=== PATIENT | female | born 1940 | race Caucasian/White ===

== ENCOUNTER 2023-11-24 21:25 | Inpatient (IN) | payer MEDICARE, SELFPAY ==
[~2023-11-24 21:25] MED LIST: Iopamidol-370 76% 500 ML MDV (1 ML CHARGE) ONE
[2023-11-24 22:27] LABS: #Basophils 0.05 10x3/uL (0.0-0.2); %Basophils 0.4 % (0.0-1.0); %Eosinophils 2.2 % (0.0-10.0); %Monocytes 6.5 % (0.0-10.0); %Neutrophils 76.6 % (42.0-75.0); Hematocrit 29.4 % (36.0-47.0); Hemoglobin 9.1 g/dL (12.0-16.0); Mean Corpuscular Hemoglobin 22.8 pg (27.0-31.0); Mean Corpuscular Volume 73.5 fL (78.0-98.0); Mean Platelet Volume 8.6 fL (7.4-10.4); Platelet Count 309 10x3/uL (130-400); RBC Distribution Width 16.5 % (11.5-14.5)
[2023-11-24 22:44] LABS: ALT (SGPT) 11 U/L (8-55); AST (SGOT) 15 U/L (5-34); Albumin 2.6 g/dL (3.4-4.8); Alkaline Phosphatase 61 U/L (40-110); Anion Gap 14 mmol/L (10-20); BUN (Urea Nitrogen) 18 mg/dL (9.8-20.1); Bilirubin, Total 0.4 mg/dL (0.2-1.2); Calc. Creatinine Clearance 0 mL/min (70-130); Carbon Dioxide 27 mmol/L (23-31); Chloride 94 mmol/L (98-107); Estimated GFR 75; Globulin 3.5 g/dL (2.4-3.5); Glucose 137 mg/dL (83-110); Potassium 3.8 mmol/L (3.5-5.1); Protein, Total 6.1 g/dL (5.8-8.1); Sodium 131 mmol/L (136-145)
[2023-11-24 22:47] LABS: Anisocytosis SLIGHT = 6-15 cells HPF (0-5); Hypochromia SLIGHT = 6-15 cells HPF (0-5); Microcytosis SLIGHT = 6-15 cells HPF (0-5); Platelet Adequacy Comment Platelets Normal; Polychromasia SLIGHT = 2-3 cells HPF (0-2); Target Cells SLIGHT = 2-5 cells HPF (0-1)
[2023-11-24 23:19] LABS: Troponin I 0.182 ng/mL (< 0.028)
[2023-11-25] MEDS ORDERED: Aspirin Chewable 81 MG TAB ONE (01:11)
[2023-11-25] MEDS ORDERED: Furosemide 40 MG (4 mL) VIAL ONE (01:11)
[2023-11-25] MEDS ORDERED: Sodium Chloride 0.9% 100 ML ONE (01:12)
[2023-11-25] MEDS ORDERED: Cefepime 2 GM VIAL ONE (01:12)
[2023-11-25] MEDS ORDERED: Ipratropium/Albuterol 3 ML NEB NEB PRN (01:20)
[2023-11-25] MEDS ORDERED: Ondansetron ODT 4 MG TAB PO PRN (01:21)
[2023-11-25] MEDS ORDERED: Acetaminophen 650 MG Suppository PR PRN (01:21)
[2023-11-25] MEDS ORDERED: Ondansetron PF 4 MG/2 ML Vial IVP PRN (01:21)
[2023-11-25] MEDS ORDERED: LevoFLOXacin 750 mg/D5W 150 ml Premix Bag ONE (01:44)
[2023-11-25 03:21] VITALS: BMI 23.6
[2023-11-25 05:33] LABS: #Basophils 0.05 10x3/uL (0.0-0.2); %Basophils 0.4 % (0.0-1.0); %Eosinophils 4.9 % (0.0-10.0); %Lymphocytes 18.8 % (21.0-51.0); %Neutrophils 64.4 % (42.0-75.0); Hematocrit 29.4 % (36.0-47.0); Hemoglobin 8.9 g/dL (12.0-16.0); Mean Corpuscular HGB CONC 30.3 g/dL (32.0-36.0); Mean Corpuscular Hemoglobin 22.5 pg (27.0-31.0); Mean Corpuscular Volume 74.4 fL (78.0-98.0); Mean Platelet Volume 8.6 fL (7.4-10.4); Platelet Count 282 10x3/uL (130-400); RBC Distribution Width 16.9 % (11.5-14.5); Red Blood Cell (RBC) Count 3.95 mill/uL (4.20-5.40)
[2023-11-25 05:44] LABS: Anion Gap 13 mmol/L (10-20); BUN (Urea Nitrogen) 16 mg/dL (9.8-20.1); Calc. Creatinine Clearance 53 mL/min (70-130); Carbon Dioxide 29 mmol/L (23-31); Chloride 94 mmol/L (98-107); Estimated GFR 86; Glucose 85 mg/dL (83-110); Potassium 3.6 mmol/L (3.5-5.1); Sodium 132 mmol/L (136-145)
[2023-11-25 05:55] LABS: Troponin I 0.219 ng/mL (< 0.028)
[2023-11-25 06:25] LABS: Influenza A by NAA Not Detected (NotDetected); Influenza B by NAA Not Detected (NotDetected); RSV by NAA Not Detected (NotDetected); SARS-CoV-2 NAA Rapid Test Not Detected (NotDetected)
[2023-11-25] MEDS: Ipratropium Bromide 2.5 ml Neb NEB SCH (07:20)
[2023-11-25] MEDS: Mometasone 200 MCG/Formoterol 5 MCG 120 PUFF INHALER INH SCH (07:22)
[2023-11-25 07:27] LABS: Legionella Urinary Ag Negative (Negative); Strep pneumo Urine Ag NEGATIVE (NEGATIVE)
[2023-11-25] MEDS: cefTRIAXone\\ROCEPHIN 1 GM in Sodium Chloride 0.9% 100 ML IVPB SCH (08:19)
[2023-11-25] MEDS: Famotidine/PF 20 mg/2ml Vial SLOW IVP SCH (08:19)
[2023-11-25] MEDS: Famotidine 20 MG TAB PO SCH (08:20)
[2023-11-25 09:55] LABS: Troponin I 0.138 ng/mL (< 0.028)
[2023-11-25] MEDS: Acetaminophen/Codeine 30-300mg Tablet PO PRN (17:46)
[2023-11-25] MEDS: Acetaminophen 325 MG TAB PO PRN (20:26)
[2023-11-26 10:12] LABS: Anion Gap 12 mmol/L (10-20); BUN (Urea Nitrogen) 9 mg/dL (9.8-20.1); Calc. Creatinine Clearance 64 mL/min (70-130); Calcium 9.4 mg/dL (7.8-10.44); Carbon Dioxide 29 mmol/L (23-31); Chloride 98 mmol/L (98-107); Estimated GFR 90; Glucose 124 mg/dL (83-110); Potassium 4.1 mmol/L (3.5-5.1); Sodium 135 mmol/L (136-145)
[2023-11-26 16:36] VITALS: BMI 23.2
[2023-11-26] MEDS: LevoFLOXacin 750 mg/D5W 750 MG in Premix 1 BAG IVPB SCH (20:55)
[2023-11-26] MEDS ORDERED: LevoFLOXacin 750 mg/D5W 750 MG in Premix 1 BAG IVPB SCH (21:00)
[2023-11-27 10:26] LABS: #Basophils 0.04 10x3/uL (0.0-0.2); %Basophils 0.4 % (0.0-1.0); %Lymphocytes 17.3 % (21.0-51.0); %Monocytes 7.6 % (0.0-10.0); %Neutrophils 68.3 % (42.0-75.0); Hematocrit 28.6 % (36.0-47.0); Hemoglobin 8.6 g/dL (12.0-16.0); Mean Corpuscular HGB CONC 30.1 g/dL (32.0-36.0); Mean Corpuscular Hemoglobin 22.5 pg (27.0-31.0); Mean Corpuscular Volume 74.7 fL (78.0-98.0); Mean Platelet Volume 8.3 fL (7.4-10.4); Platelet Count 270 10x3/uL (130-400); Red Blood Cell (RBC) Count 3.83 mill/uL (4.20-5.40)
[2023-11-27 10:43] LABS: Anion Gap 13 mmol/L (10-20); BUN (Urea Nitrogen) 10 mg/dL (9.8-20.1); Calc. Creatinine Clearance 73 mL/min (70-130); Calcium 9.1 mg/dL (7.8-10.44); Carbon Dioxide 26 mmol/L (23-31); Chloride 97 mmol/L (98-107); Estimated GFR 93; Glucose 92 mg/dL (83-110); Potassium 4.1 mmol/L (3.5-5.1); Sodium 132 mmol/L (136-145)
[2023-11-27] MEDS: QUEtiapine 25 MG TAB PO SCH ×3 (16:21→21:06)
[2023-11-27] MEDS: Famotidine 20 MG TAB PO SCH (20:36)
[2023-11-27] MEDS: Famotidine/PF 20 mg/2ml Vial SLOW IVP SCH (20:40)
[2023-11-28] MEDS: QUEtiapine 25 MG TAB PO SCH (20:18)
[2023-11-30] MEDS: Bisacodyl 10 MG SUPP PR SCH (11:58)
[2023-11-30] MEDS: Bisacodyl 5 MG TAB PO SCH (11:58)
[2023-12-02 08:17] VITALS: BP 141/74; TEMP 99.2
== END 2023-12-02 10:27 | DRG 177 ==
LOC: ERS 21:25 → 2SW 11-25 01:32
PROVIDERS: ADMIT Student in an Organized Health Care Education/Training Program; ATTEND Internal Medicine
DX: J15.69 Pneumonia due to other Gram-negative bacteria (principal); I21.A1 Myocardial infarction type 2; I50.33 Acute on chronic diastolic (congestive) heart failure; S72.002A Fracture of unspecified part of neck of left femur, initial encounter for closed fracture; J96.10 Chronic respiratory failure, unspecified whether with hypoxia or hypercapnia; I35.0 Nonrheumatic aortic (valve) stenosis; J18.9 Pneumonia, unspecified organism; J44.9 Chronic obstructive pulmonary disease, unspecified; D64.9 Anemia, unspecified; S62.102A Fracture of unspecified carpal bone, left wrist, initial encounter for closed fracture; Z79.82 Long term (current) use of aspirin; Z79.899 Other long term (current) drug therapy; Y95 Nosocomial condition
CPT/HCPCS: 0241U; 36415; 71045; 71275; 80048; 80053; 83605; 83880; 84443; 84484; 85025; 85379; 86850; 86900; 86901; 87040; 87449; 87899; 93005; 93798; 94640; 94760; 96374; 96375; J0692; J0696; J1940; J1956; J3490; J7644; Q9967